=== PATIENT | male | born 1990 | race Caucasian/White ===

== ENCOUNTER 2016-07-16 16:48 | Emergency (ER) | payer OTHER | END 2016-07-16 18:43 | disposition home or self-care (01) | LOC: FER 16:48 | DX: L02.411 Cutaneous abscess of right axilla (principal) | CPT/HCPCS: 86403; 87070; 87077; 87186; 87205; 90471; 90715 ==

== ENCOUNTER 2016-09-16 18:04 | Emergency (ER) | payer OTHER ==
[2016-09-16 21:49] LABS: BASOPHIL 0.3 % (0-2); HCT 39.3 % (42.0-52.0); HGB 13.8 g/dl (13.2-18.0); LYMPHOCYTE 27.7 % (15-48); MCH 30.5 pg (25.0-31.0); MCHC 35.1 g/dL (32.0-36.0); MCV 86.8 fL (78.0-100.0); MONOCYTE 6.4 % (0-12); MPV 10.8 fL (6.0-9.5); NEUTROPHIL 63.6 % (41-80); PLT 273 K/uL (150-400); RBC 4.53 M/uL (4.70-6.00); RDW 12.7 % (11.5-14.0); WBC 9.2 K/uL (4.0-10.5)
[2016-09-16 21:51] LABS: BILIRUBIN NEGATIVE (NEGATIVE); BLOOD NEGATIVE Ery/uL (NEGATIVE); COLOR YELLOW (YELLOW); GLUCOSE (U) NORMAL (NORMAL); KETONE (U) NEGATIVE (NEGATIVE); LEUKOCYTES NEGATIVE Leu/uL (NEGATIVE); NITRITE NEGATIVE (NEGATIVE); PROTEIN NEGATIVE (NEGATIVE); SPECIFIC GRAVITY 1.015 (1.001-1.030); UROBILINOGEN 0.2 mg/dL (0.2-1.0); pH 8.5 (5.0-9.0)
[2016-09-16 22:09] LABS: ALBUMIN 4.2 g/dL (3.5-5.0); BILIRUBIN - TOTAL 0.3 mg/dL (0.1-1.0); CREATININE 0.8 mg/dL (0.7-1.2); GLOBULIN (CALCULATION) 2.8 g/dL (2.2-4.2); POTASSIUM 3.7 mmol/L (3.5-5.1)
[2016-09-16 22:18] LABS: CLARITY SLIGHTLY HAZY (CLEAR)
== END 2016-09-17 00:46 | disposition home or self-care (01) ==
LOC: FER 18:04
PROVIDERS: Emergency Medicine
DX: R11.10 Vomiting, unspecified (principal)
CPT/HCPCS: 36415; 80053; 81003; 82150; 83690; 85025; J2405; Q9967